=== PATIENT | male | born 1955 | race African-American/Black ===

== ENCOUNTER 2017-01-22 22:48 | Emergency (ER) ==
[2017-01-22 23:00] VITALS: BP 105/59; TEMP 96.2; BMI 29.1
[2017-01-22] MEDS ORDERED: ZOFRAN 4 MG/2 ML IVP STA (23:02)
[2017-01-22] MEDS ORDERED: SODIUM CHLORIDE 1,000 ML IV STA (23:02)
[2017-01-22] MEDS ORDERED: MORPHINE 4 MG/ML VIAL IVP STA (23:02)
--- NOTE | 2017-01-22 23:02 | ED.PDOC ---
General ED Provider: Dr. RADHA BENITO Chief Complaint: Abdominal Pain Stated Complaint: Patients a 61 year old male who states that one hour after he ate lunch. Had had similar episodes in the past. Extensive work up has been unyelding. Pain starts suddenly and is diffuse. Time Seen by Physician: 23:00 Mode of Arrival: Walk-In Information Source: Patient, Family Nursing and Triage Documentation Reviewed and Agree: Yes GI Complaint Exam - Abdominal Pain Complaint/Exam Duration: 7 hours ago Symptoms Are: Still present Timing: Constant Initial Severity: Severe Current Severity: Severe Location of Pain: Diffuse Radiates To: Denies: Chest, Back, Flank, LLQ, RLQ, Inguinal Character: Reports: Dull, Aching Aggravating: Reports: Food Alleviating: Reports: Vomiting Associated Signs and Symptoms: Reports: Nausea, Vomiting. Denies: Diaphoresis, Fever, Cough, Chest pain, Dizziness, Back pain, Constipation, Blood in stool, Dysuria, Urinary frequency, Decreased urine output, Decreased appetite, Discharge, Diarrhea, Decreased activity Differential Diagnoses: Diverticulitis, Gastroenteritis, Hepatitis Review of Systems - Review Of Systems Constitutional: Reports: No symptoms Eyes: Reports: No symptoms Ears, Nose, Mouth, Throat: Reports: No symptoms Respiratory: Reports: No symptoms Cardiac: Reports: No symptoms GI: Reports: Abdominal pain, Nausea, Vomiting : Reports: No symptoms Musculoskeletal: Reports: No symptoms Skin: Reports: No symptoms Neurological: Reports: No symptoms Endocrine: Reports: No symptoms Hematologic/Lymphatic: Reports: No symptoms All Other Systems: Reviewed and Negative Past Medical History - Past Medical History Previously Healthy: Yes Endocrine: Reports: DM 2 Cardiovascular: Reports: Hypertension Respiratory: Reports: None Hematological: Reports: None Gastrointestinal: Reports: Other (Chronic abdominal pain) Genitourinary: Reports: None Neuro/Psych: Reports: None Musculoskeletal: Reports: None Cancer: Reports: None - Surgical History General Surgical History: Reports: None - Family History Family History: Reports: Unknown - Social History Smoking Status: Former smoker Hx Substance Use: No Alcohol Screening: Occasionally - Immunizations Tetanus Shot up to Date: (UNKNOWN) Physical Exam - Physical Exam Appearance: Ill-appearing Ill-appearing: Moderate Pain Distress: Severe Neck: Supple Respiratory: Airway patent, Breath sounds clear, Breath sounds equal, Respirations nonlabored Cardiovascular: RRR, Pulses normal, No rub, No murmur GI/: Soft, No masses, Bowel sounds normal, No Organomegaly, Tender Musculoskeletal: Normal strength, ROM intact, No edema, No calf tenderness Skin: Warm, Dry, Normal color Neurological: Sensation intact, Motor intact, Reflexes intact, Cranial nerves intact, Alert, Oriented Psychiatric: Anxious Interpretation - Radiology Interpretation Radiology Interpretation By: Radiologist Radiology Results: Negative Exam Interpreted: CT Scan Re-Evaluation - Re-Evaluation Time of Re-Evaluation: 02:20 Status: Improved Pain Level: much better Critical Care Note - Critical Care Note Total Time (mins): 0 Course - Course Hematology/Chemistry: 01/22/17 23:10 01/22/17 23:10 Orders, Labs, Meds: Lab Review 01/22/17 01/22/17 01/23/17 23:10 23:10 01:35 WBC 10.02 RBC 4.02 L Hgb 13.0 L Hct 38.3 L MCV 95.3 H MCH 32.3 H MCHC 33.9 RDW Coeff of Te 12.7 Plt Count 214 Immature Gran % (Auto) 0.5 Neut % (Auto) 76.9 Lymph % (Auto) 17.4 Curry % (Auto) 4.8 Eos % (Auto) 0.0 Baso % (Auto) 0.4 Immature Gran # (Auto) 0.1 Neut # 7.7 H Lymph # 1.7 Curry # 0.5 Eos # 0.0 Baso # 0.0 Sodium 138 Potassium 3.7 Chloride 102 Carbon Dioxide 23 Anion Gap 16.7 BUN 18 Creatinine 1.09 Estimated GFR (MDRD) 83.00 BUN/Creatinine Ratio 16.51 Glucose 160 H Calcium 10.9 H Total Bilirubin 0.96 AST 34 ALT 33 Alkaline Phosphatase 74 Total Protein 7.5 Albumin 4.1 Globulin 3.4 Albumin/Globulin Ratio 1.21 Amylase 146 H Lipase 25 Urine Color Yellow Urine Clarity Clear Urine pH 6.5 Ur Specific [place] 1.025 Urine Protein 1+ Urine Glucose (UA) Negative Urine Ketones 3+ Urine Blood Trace-intact Urine Nitrite Negative Urine Bilirubin 1+ Urine Urobilinogen 1.0 Ur Leukocyte Esterase Negative Urine Microscopic RBC 2-5 Ur Squamous Epith Cells Not present Urine Mucus 2+ Orders Category Date Time Status ED IV/MEDIPORT/POWERPORT .ONCE EMERGENCY 01/22/17 23:02 Active ED IV/MEDIPORT/POWERPORT .ONCE EMERGENCY 01/22/17 23:18 Active AMYLASE Stat LAB 01/22/17 23:10 Completed CBC W/ AUTO DIFF Stat LAB 01/22/17 23:10 Completed COMPREHENSIVE METABOLIC PANEL Stat LAB 01/22/17 23:10 Completed LIPASE Stat LAB 01/22/17 23:10 Completed URINALYSIS C & S IF INDICATED Stat LAB 01/23/17 01:35 Completed 0.9 % Sodium Chloride [Saline Flush] MEDS 01/22/17 23:02 Discontinued 1 syr IVF PRN PRN 0.9 % Sodium Chloride [Saline Flush] MEDS 01/22/17 23:18 Discontinued 1 syr IVF PRN PRN Dicyclomine Inj [Bentyl] MEDS 01/23/17 00:30 Discontinued 20 mg IM ONCE STA Hydromorphone HCl [Dilaudid 1 mg/ml Syringe] MEDS 01/23/17 00:35 Discontinued 1 mg IVP ONCE STA Morphine Sulfate [Morphine 4 mg/ml Vial] MEDS 01/22/17 23:02 Discontinued 4 mg IVP ONCE STA Ondansetron HCl/Pf [Zofran 4 mg/2 ml] MEDS 01/22/17 23:02 Discontinued 4 mg IVP ONCE STA Ondansetron HCl/Pf [Zofran 4 mg/2 ml] MEDS 01/23/17 01:24 Discontinued 4 mg IVP ONCE STA Sodium Chloride 0.9% [Sodium Chloride] 1,000 ml MEDS 01/22/17 23:02 Discontinued IV BOLUS Sodium Chloride 0.9% [Sodium Chloride] 1,000 ml MEDS 01/23/17 00:[address] ABD/PEL WO RENAL STONE PROT Stat RADS 01/22/17 23:02 Completed Medications Discontinued Medications Generic Name Dose Route Start Last Admin Trade Name Freq PRN Reason Stop Dose Admin Dicyclomine HCl 20 mg 01/23/17 00:30 01/23/17 00:41 Bentyl IM 01/23/17 00:31 20 mg ONCE STA Administration Hydromorphone HCl 1 mg 01/23/17 00:35 01/23/17 01:19 Dilaudid 1 Mg/Ml Syringe IVP 01/23/17 00:36 1 mg ONCE STA Administration Sodium Chloride 1,000 mls @ 1,000 mls/hr 01/22/17 23:02 01/22/17 23:34 Sodium Chloride IV 01/23/17 00:01 1,000 mls/hr BOLUS STA Administration Sodium Chloride 1,000 mls @ 1,000 mls/hr 01/23/17 00:35 01/23/17 00:41 Sodium Chloride IV 01/23/17 01:34 1,000 mls/hr BOLUS STA Administration Morphine Sulfate 4 mg 01/22/17 23:02 01/22/17 23:35 Morphine 4 Mg/Ml Vial IVP 01/22/17 23:03 4 mg ONCE STA Administration Ondansetron HCl 4 mg 01/22/17 23:02 01/22/17 23:34 Zofran 4 Mg/2 Ml IVP 01/22/17 23:03 4 mg ONCE STA Administration Ondansetron HCl 4 mg 01/23/17 01:24 01/23/17 01:26 Zofran 4 Mg/2 Ml IVP 01/23/17 01:25 4 mg ONCE STA Administration Sodium Chloride 1 syr 01/22/17 23:02 01/22/17 23:33 Saline Flush IVF 1 syr PRN PRN Administration To flush IV Sodium Chloride 1 syr 01/22/17 23:18 Saline Flush IVF PRN PRN To flush IV Vital Signs: Temp Pulse Resp BP Pulse Ox 01/22/17 22:49 96.2 F L 48 L 20 105/59 L 100 Departure - Departure Time of Disposition: 02:25 Disposition: HOME SELF-CARE Discharge Problem: Abdominal pain Instructions: Acute Abdominal Pain (ED) Condition: Fair Pt referred to PMD for follow-up: Yes Additional Instructions: Follow up with PCP in 3 days Take antispasmodic medications as needed for spasms. Prescriptions: Dicyclomine HCl [Bentyl] 10 mg PO TID PRN #20 capsule PRN Reason: Abdominal Pain Allergies/Adverse Reactions: Allergies No Known Drug Allergies Adverse Reaction (Verified 01/22/17 22:56) Home Medications: Ambulatory Orders Lisinopril/Hydrochlorothiazide [Lisinopril-Hctz 20-25 mg Tab] 1 each PO DAILY Metformin HCl 500 mg PO DAILY 01/22/17 Dicyclomine HCl [Bentyl] 10 mg PO TID PRN #20 capsule 01/23/17 Disposition Discussed With: Patient, Family
[2017-01-22 23:31] LABS: BASOPHILS % (AUTO) 0.4 % (0.0-3.0); HEMATOCRIT 38.3 % (42.0-52.0); IMMATURE GRANULOCYTE % (AUTO) 0.5 % (0.0-5.0); LYMPHOCYTES # (AUTO) 1.7 K/uL (0.60-3.4); LYMPHOCYTES % (AUTO) 17.4 (10.0-50.0); MEAN CORPUSCULAR HEMOGLOBIN 32.3 pg (27.0-31.0); MEAN CORPUSCULAR HGB CONC 33.9 (31.8-35.4); MEAN CORPUSCULAR VOLUME 95.3 fl (80.0-94.0); MONOCYTES # (AUTO) 0.5 K/uL (0.4-2.0); MONOCYTES % (AUTO) 4.8 (0-10); NEUTROPHILS # (AUTO) 7.7 K/ul (2.0-6.9); NEUTROPHILS % (AUTO) 76.9; PLATELET COUNT 214 10^3/uL (140-440); RED BLOOD COUNT 4.02 10^6/ul (4.70-6.10); WHITE BLOOD COUNT 10.02 K/ul (4.2-10.2)
--- NOTE | 2017-01-22 23:41 | CT ---
EXAM: CT of the abdomen and pelvis without contrast. HISTORY: Abdominal pain. PROCEDURE: Contiguous axial CT images of the abdomen and pelvis without contrast with coronal and sa gittal reformats. FINDINGS: Comparison made with CT abdomen/pelvis of 09/05/2015. The liver, gallbladder, pancreas, spl een, adrenal glands and kidneys are normal in appearance. The abdominal aorta is within normal limit s in diameter. The visualized loops of bowel and appendix are normal in appearance. No free fluid or free air in the abdomen or pelvis. The bladder is adequately filled. There is diffuse increased den sity in the bladder suspicious for hemorrhage. The seminal vesicles and prostate gland are unremarka ble. There are degenerative changes in the spine. There is a small umbilical hernia containing only fat. Impression: Diffuse increased density in the bladder suspicious for hemorrhage. Recommend correlati on with urinary analysis. Umbilical hernia as described.
[2017-01-22 23:48] LABS: ALBUMIN 4.1 g/dL (3.4-5.0); ALBUMIN/GLOBULIN RATIO 1.21; ANION GAP 16.7; BILIRUBIN,TOTAL 0.96 mg/dL (0.00-1.20); BUN/CREATININE RATIO 16.51; CALCIUM 10.9 mg/dL (8.2-10.2); CREATININE 1.09 mg/dL (0.60-1.10); POTASSIUM 3.7 mmol/L (3.5-5.1); TOTAL PROTEIN 7.5 g/dL (5.8-8.1)
[2017-01-23] MEDS ORDERED: BENTYL IM STA (00:30)
[2017-01-23] MEDS ORDERED: DILAUDID 1 MG/ML SYRINGE IVP STA (00:35)
[2017-01-23] MEDS ORDERED: SODIUM CHLORIDE 1,000 ML IV STA (00:35)
[2017-01-23] MEDS ORDERED: ZOFRAN 4 MG/2 ML IVP STA (01:24)
[2017-01-23 02:11] LABS: BILIRUBIN,URINE 1+ (NEGATIVE); KETONES,URINE 3+ (NEGATIVE); LEUKOCYTE ESTERASE ,URINE Negative (NEGATIVE); NITRITE,URINE Negative (NEGATIVE); PH,URINE 6.5 (5-9); PROTEIN,URINE 1+ (NEGATIVE); URINE, BLOOD Trace-intact (NEGATIVE)
[2017-01-23 02:12] LABS: ADD URINE MICROSCOPIC YES
== END 2017-01-23 02:30 | disposition home or self-care (01) ==
LOC: ED 22:48
DX: R10.84 Generalized abdominal pain (principal); R11.2 Nausea with vomiting, unspecified; E11.9 Type 2 diabetes mellitus without complications; I10 Essential (primary) hypertension
CPT/HCPCS: 36415; 74176; 80053; 81001; 82150; 83690; 85025; 96361; 96372; 96374; 96375; 96376; 99283

== ENCOUNTER 2017-08-10 15:34 | Outpatient (CLI) ==
--- NOTE | 2017-08-10 16:55 | DI ---
EXAM: Three views of the left wrist. History: Left wrist edema. Findings: No acute fracture or dislocation. No abnormal calcifications or radiopaque foreign bodies . Joint spaces are relatively preserved. There is subcutaneous edema seen at the wrist. Impression: 1. No acute osseous abnormality. 2. Subcutaneous edema.
--- NOTE | 2017-08-10 16:56 | DI ---
EXAM: Three views of the left hand. History: Left hand edema and trauma. Findings: No acute fracture or dislocation. Joint spaces are relatively preserved. 2 mm radiodensi ty seen within the soft tissues of the distal fourth digit. There is soft tissue swelling or soft ti ssue nodules involving the second PIP joint. Diffuse soft tissue swelling. Impression: 1. No acute osseous abnormality. 2. Radiopaque foreign body within the soft tissues of the distal fourth digit. 3. Soft tissue swelling or soft tissue nodules involving the second PIP joint. Correlate clinically . 4. Diffuse soft tissue swelling
== END 2017-08-10 15:35 | disposition home or self-care (01) ==
LOC: RAD 15:34
PROVIDERS: ATTEND Physician Assistant
DX: R60.0 Localized edema (principal)

== ENCOUNTER 2017-08-19 19:12 | Emergency (ER) ==
[2017-08-19 19:15] VITALS: BP 111/70; TEMP 97.4; BMI 29.8
[2017-08-19] MEDS ORDERED: ZOFRAN 4 MG/2 ML IVP STA (19:19)
[2017-08-19] MEDS ORDERED: MORPHINE 4 MG/ML SYRINGE IVP STA ×4 (19:19→21:54)
[2017-08-19] MEDS ORDERED: SODIUM CHLORIDE 1,000 ML IV STA (19:19)
--- NOTE | 2017-08-19 20:09 | CT ---
EXAM: CT scan abdomen pelvis without contrast HISTORY: Abdominal pain COMPARISON: CT scan abdomen pelvis 01/22/2017 FINDINGS: Contiguous axial images obtained through the abdomen and pelvis without contrast utilizing 3-mm collimation. Sagittal coronal reconstructions were imaged and reviewed. Benign granulomatous changes of the left lung base. Gallbladder is fluid filled without cholelithiasis. The liver pancre as spleen and adrenal glands have normal unenhanced CT appearance. Kidneys are morphologically daniel l. There is a normal retrocecal appendix. The prostate gland is normal in size.. Atherosclerotic ch anges are seen involving the aorta without aneurysm formation. There is a small umbilical hernia con taining only fat. IMPRESSION: ASVD without aneurysm. Small umbilical hernia containing only fat. Normal appendix. No evidence of free fluid or inflammatory changes
--- NOTE | 2017-08-19 21:08 | ED.PDOC ---
General ED Provider: Dr. MARTHA RIZZO-ER Chief Complaint: Abdominal Pain Stated Complaint: he has abd pain--hes had this for years Time Seen by Physician: 19:15 Mode of Arrival: Walk-In Information Source: Patient Exam Limitations: No limitations Primary Care Provider: EVELIO HENLEY Nursing and Triage Documentation Reviewed and Agree: Yes Reviewed sepsis parameters & appropriate labs ordered?: Yes System Inflammatory Response Syndrome: Not Applicable Sepsis Protocol: For patient's 13 years and over: Temp is 96.8 and below OR 101 and greater Pulse >90 BPM Resp >20/minute Acutely Altered Mental Status Are patient's symptoms suggestive of a new infection, such as: -Pneumonia -Skin, Soft Tissue -Endocarditis -UTI -Bone, Joint Infection -Implantable Device -Acute Abdominal Infection -Wound Infection -Meningitis -Blood Stream Catheter Infection -Unknown GI Complaint Exam - Abdominal Pain Complaint/Exam Onset: Gradual Duration: several hours Symptoms Are: Still present Initial Severity: Mild Current Severity: Moderate Location of Pain: Diffuse Character: Reports: Dull, Aching Associated Signs and Symptoms: Reports: Nausea, Vomiting. Denies: Diaphoresis, Fever, Cough, Chest pain, Dizziness, Back pain, Constipation, Blood in stool, Dysuria, Urinary frequency, Decreased urine output, Decreased appetite, Discharge AAA Risk Factors: Reports: None Surgical Obstruction Risk Factors: Reports: None Abdominal Findings: Present: None Genitalia Exam: Present: Normal findings Prostate Exam: Nontender Differential Diagnoses: Bowel Obstruction, Constipation, Pancreatitis Quality Indicator For Non-Traumatic Chest Pain/Syncope: EKG Performed Review of Systems - Review Of Systems Constitutional: Reports: No symptoms Eyes: Reports: No symptoms Ears, Nose, Mouth, Throat: Reports: No symptoms Respiratory: Reports: No symptoms Cardiac: Reports: No symptoms GI: Reports: Abdominal pain, Nausea, Vomiting : Reports: No symptoms Musculoskeletal: Reports: No symptoms Skin: Reports: No symptoms Neurological: Reports: No symptoms Endocrine: Reports: No symptoms Hematologic/Lymphatic: Reports: No symptoms All Other Systems: Reviewed and Negative Past Medical History - Past Medical History Previously Healthy: Yes Endocrine: Reports: DM 2 Cardiovascular: Reports: Hypertension Respiratory: Reports: None Hematological: Reports: None Gastrointestinal: Reports: Other (Chronic abdominal pain) Genitourinary: Reports: None Neuro/Psych: Reports: None Musculoskeletal: Reports: None Cancer: Reports: None - Surgical History General Surgical History: Reports: None - Family History Family History: Reports: Unknown - Social History Smoking Status: Former smoker Hx Substance Use: No Alcohol Screening: None Lives: With family - Immunizations Tetanus Shot up to Date: Yes Physical Exam - Physical Exam Appearance: Well-appearing, No pain distress, Well-nourished Eyes: JAK, EOMI, Conjunctiva clear ENT: Ears normal, Nose normal, Oropharynx normal Respiratory: Airway patent, Breath sounds clear, Breath sounds equal, Respirations nonlabored Cardiovascular: RRR, Pulses normal, No rub, No murmur GI/: Soft, Nontender, No masses, Bowel sounds normal, No Organomegaly Musculoskeletal: Normal strength, ROM intact, No edema, No calf tenderness Skin: Warm, Dry, Normal color Neurological: Sensation intact, Motor intact, Reflexes intact, Cranial nerves intact, Alert, Oriented Psychiatric: Affect appropriate, Mood appropriate Interpretation - Radiology Interpretation Radiology Interpretation By: Radiologist Radiology Results: Positive Exam Interpreted: CT Scan - EKG Interpretation Time of EKG #1: 21:08 Rate: Normal Rhythm: Sinus Ectopy: None [place]: NL ST Segment: Normal Interpretation: nsr Re-Evaluation - Re-Evaluation Time of Re-Evaluation: 22:31 Status: Unchanged Vital Signs Stable: Yes Pain Level: 2 Appearance: NAD Lungs: Clear Skin: Warm and Dry Neuro: Alert and Oriented X3 CV: RRR Critical Care Note - Critical Care Note Total Time (mins): 0 Course - Course Hematology/Chemistry: 08/19/17 19:43 08/19/17 19:43 Orders, Labs, Meds: Lab Review 08/19/17 08/19/17 08/19/17 19:43 19:43 21:04 WBC 11.63 H RBC 3.88 L Hgb 12.6 L Hct 37.0 L MCV 95.4 H MCH 32.5 H MCHC 34.1 RDW Coeff of Te 12.7 Plt Count 227 Immature Gran % (Auto) 0.3 Neut % (Auto) 81.7 Lymph % (Auto) 14.1 [place] % (Auto) 3.6 Eos % (Auto) 0.0 Baso % (Auto) 0.3 Immature Gran # (Auto) 0.0 Neut # (Auto) 9.5 H Lymph # (Auto) 1.6 Bryan # (Auto) 0.4 Eos # (Auto) 0.0 Baso # (Auto) 0.0 ESR 16 H Sodium 141 Potassium 4.1 Chloride 106 Carbon Dioxide 19 L Anion Gap 20.1 BUN 19 H Creatinine 1.09 Estimated GFR (MDRD) 83.00 BUN/Creatinine Ratio 17.43 Glucose 128 H Calcium 10.5 H Total Bilirubin 0.8 AST 38 H ALT 30 Alkaline Phosphatase 72 Total Creatine Kinase 865 CK-MB (CK-2) 5.7 H* CK-MB (CK-2) % 0.42594 Troponin I < 0.0100 Total Protein 7.6 Albumin 3.8 Globulin 3.8 Albumin/Globulin Ratio 1.00 Amylase 102 Lipase 17 Urine Color Yellow Urine Clarity Clear Urine pH 6.0 Ur Specific [place] >=1.030 Urine Protein 1+ Urine Glucose (UA) Negative Urine Ketones 3+ Urine Blood Negative Urine Nitrite Negative Urine Bilirubin 1+ Urine Urobilinogen 0.2 Ur Leukocyte Esterase Negative Urine Microscopic RBC 0-2 Urine Microscopic WBC 0-2 Ur Squamous Epith Cells 0-2 Orders Category Date Time Status EKG-(ED ONLY) Stat CARDIO 08/19/17 19:18 Completed ED IV/MEDIPORT/POWERPORT .ONCE EMERGENCY 08/19/17 19:19 Active AMYLASE Stat LAB 08/19/17 19:43 Completed CBC W/ AUTO DIFF Stat LAB 08/19/17 19:43 Completed COMPREHENSIVE METABOLIC PANEL Stat LAB 08/19/17 19:43 Completed CREATINE KINASE Stat LAB 08/19/17 19:43 Completed ESR Stat LAB 08/19/17 19:43 Completed LIPASE Stat LAB 08/19/17 19:43 Completed TROPONIN I Stat LAB 08/19/17 19:43 Completed URINALYSIS C & S IF INDICATED Stat LAB 08/19/17 21:04 Completed 0.9 % Sodium Chloride [Saline Flush] MEDS 08/19/17 19:19 Ordered 1 syr IVF PRN PRN Morphine Sulfate [Morphine 4 mg/ml Syringe] MEDS 08/19/17 19:19 Discontinued 2 mg IVP ONCE STA Morphine Sulfate [Morphine 4 mg/ml Syringe] MEDS 08/19/17 20:03 Discontinued 2 mg IVP ONCE STA Morphine Sulfate [Morphine 4 mg/ml Syringe] MEDS 08/19/17 20:46 Discontinued 2 mg IVP ONCE STA Morphine Sulfate [Morphine 4 mg/ml Syringe] MEDS 08/19/17 21:54 Discontinued 2 mg IVP ONCE STA Ondansetron HCl/Pf [Zofran 4 mg/2 ml] MEDS 08/19/17 19:19 Discontinued 4 mg IVP ONCE STA Sodium Chloride 0.9% [Sodium Chloride] 1,000 ml MEDS 08/19/17 19:[address] ABDOMEN/PELVIS WO CONTRAST Stat RADS 08/19/17 19:19 Completed Medications Generic Name Dose Route Start Last Admin Trade Name Freq PRN Reason Stop Dose Admin Sodium Chloride 1 syr 08/19/17 19:19 Saline Flush IVF PRN PRN To flush IV Discontinued Medications Generic Name Dose Route Start Last Admin Trade Name Freq PRN Reason Stop Dose Admin Sodium Chloride 1,000 mls @ 1,000 mls/hr 08/19/17 19:19 08/19/17 19:27 Sodium Chloride IV 08/19/17 20:18 1,000 mls/hr BOLUS STA Administration Morphine Sulfate 2 mg 08/19/17 19:19 08/19/17 19:27 Morphine 4 Mg/Ml Syringe IVP 08/19/17 19:20 2 mg ONCE STA Administration Morphine Sulfate 2 mg 08/19/17 20:03 08/19/17 20:10 Morphine 4 Mg/Ml Syringe IVP 08/19/17 20:04 2 mg ONCE STA Administration Morphine Sulfate 2 mg 08/19/17 20:46 08/19/17 20:49 Morphine 4 Mg/Ml Syringe IVP 08/19/17 20:47 2 mg ONCE STA Administration Morphine Sulfate 2 mg 08/19/17 21:54 08/19/17 22:07 Morphine 4 Mg/Ml Syringe IVP 08/19/17 21:55 2 mg ONCE STA Administration Ondansetron HCl 4 mg 08/19/17 19:19 08/19/17 19:28 Zofran 4 Mg/2 Ml IVP 08/19/17 19:20 4 mg ONCE STA Administration Vital Signs: Temp Pulse Resp BP Pulse Ox 08/19/17 19:13 97.4 F L 75 24 111/70 100 Departure - Departure Time of Disposition: 22:31 Disposition: HOME SELF-CARE Discharge Problem: Abdominal pain Instructions: Chronic Abdominal Pain (ED) Condition: Good Pt referred to PMD for follow-up: Yes IPMP verified?: No Allergies/Adverse Reactions: Allergies No Known Drug Allergies Adverse Reaction (Verified 08/19/17 19:15) Home Medications: Ambulatory Orders Lisinopril/Hydrochlorothiazide [Lisinopril-Hctz 20-25 mg Tab] 1 each PO DAILY Metformin HCl 500 mg PO DAILY 01/22/17 Dicyclomine HCl [Bentyl] 10 mg PO TID PRN #20 capsule 01/23/17 Transfer Form Completed: Yes Disposition Discussed With: Patient, Family
== END 2017-08-19 23:05 | disposition short-term general hospital (02) ==
LOC: ED 19:12
DX: R10.84 Generalized abdominal pain (principal); R11.2 Nausea with vomiting, unspecified; E11.9 Type 2 diabetes mellitus without complications; I10 Essential (primary) hypertension; R74.8 Abnormal levels of other serum enzymes
CPT/HCPCS: 36415; 80053; 81001; 82150; 82550; 82553; 83690; 84484; 85025; 85651; 93005; 93010; 96361; 96374; 96375; 99285

== ENCOUNTER 2017-11-29 07:01 | Day surgery (SDC) ==
[2017-11-29 07:50] VITALS: TEMP 98.6
[2017-11-29] MEDS ORDERED: LIDOCAINE 1% 20 ML MDV ID STA (08:01)
[2017-11-29] MEDS ORDERED: SUBLIMAZE ONE (08:29)
[2017-11-29] MEDS ORDERED: ROBINOL ONE (08:29)
[2017-11-29] MEDS ORDERED: DIPRIVAN 20 ML VIAL IVP ONE (08:29)
--- NOTE | 2017-11-30 09:49 | OP ---
INDICATIONS FOR PROCEDURE: 62-year-old gentleman presents for colonoscopy exam. He has a history of colon polyps, unknown histology removed three years ago at an outside facility. He presents for colonoscopy now. MEDICATIONS: SEE ANESTHESIA NOTES. PROCEDURE: COLONOSCOPY. REPORT: The risks, benefits, alternatives and limitations were discussed in detail with the patient. Informed consent was obtained. After adequate sedation was achieved, a digital rectal exam revealed good tone, no masses. The colonoscope was introduced into the rectum and advanced under direct visual guidance to the cecum. The cecum was identified by the appendiceal orifice and IC valve. I then slowly withdrew the scope in a circumferential manner and examined the mucosa quite carefully. I looked on the proximal and distal side of folds and flexures as best as possible. I was able to retroflex the scope in the right colon and left colon to increase visualization. The prep was good. The colonic mucosa was unremarkable other than a few scattered diverticula in the left colon. No other abnormalities were noted including on retroflex view of the anal canal. The prep was good. The withdrawal time was 8 minutes and 35 seconds. The patient tolerated the procedure well with stable vital signs and pulse oximetry throughout. IMPRESSION: 1. DIVERTICULOSIS. RECOMMENDATIONS: 1. High fiber diet. 2. Office visit as needed. 3. Colonoscopy examination again in 5 years, sooner if there are any signs or symptoms to indicate otherwise. cc: KIARA Escamilla [address] [place] [id number] [facility]
[2017-12-01 10:53] VITALS: BP 128/67
== END 2017-11-29 09:45 | disposition home or self-care (01) ==
LOC: SURG 07:01
PROVIDERS: ATTEND Internal Medicine Gastroenterology
DX: Z86.010 Personal history of colon polyps (principal); K57.90 Diverticulosis of intestine, part unspecified, without perforation or abscess without bleeding